=== PATIENT | female | born 1985 | race Caucasian/White ===

== ENCOUNTER → 2019-09-19 | Outpatient (CLI) | payer BC ==
--- NOTE | 2019-09-19 10:23 | MM ---
Reason for exam: clinical finding. Baseline mammogram. History: Family history of breast cancer in paternal grandmother at age 60. Took hormonal contraceptives for 5 years. [facility] Diagnostic Mammo w CAD COLE Bilateral CC and MLO view(s) were taken. The breast tissue is heterogeneously dense. This may lower the sensitivity of mammography. No suspicious abnormality. These results were verbally communicated with the patient and result sheet given to the patient on 09/19/19. ASSESSMENT: Negative, BI-RAD 1 RECOMMENDATION: Routine screening mammogram of both breasts in 1 year. Manage patient on a clinical basis. If right breast pain re-occurs ultrasound would be recommended.
== END | disposition home or self-care (01) ==
LOC: RADMAMWWP 08:25
PROVIDERS: ATTEND Family Medicine
DX: N64.4 Mastodynia (principal)
CPT/HCPCS: 77066